=== PATIENT | male | born 1970 | race Caucasian/White ===

== ENCOUNTER 2020-09-15 17:11 | Emergency (ER) | payer OTHER ==
[2020-09-15] MEDS ORDERED: CYCLOBENZAPRINE10 MG PO (19:16)
[2020-09-15] MEDS ORDERED: NORCO 5-325 TA1 EACH PO (19:16)
== END 2020-09-15 19:44 | disposition home or self-care (01) ==
LOC: FER 17:11
DX: S23.3XXA Sprain of ligaments of thoracic spine, initial encounter (principal); S33.5XXA Sprain of ligaments of lumbar spine, initial encounter; S40.812A Abrasion of left upper arm, initial encounter; V03.90XA Pedestrian on foot injured in collision with car, pick-up truck or van, unspecified whether traffic or nontraffic accident, initial encounter
CPT/HCPCS: 70450; 71045; 71100; 72125; 72128; 72131; 73030; 73130

== ENCOUNTER 2021-02-15 14:21 | Emergency (ER) | payer OTHER ==
[~2021-02-15 14:21] MED LIST: CYCLOBENZAPRINE10 MG PO; NORCO 5-325 TA1 EACH PO
[2021-02-15 15:09] LABS: BASOPHIL 0.4 % (0-2); EOSINOPHIL 4.6 % (0-5); HCT 51.6 % (42.0-52.0); HGB 17.7 g/dl (13.2-18.0); LYMPHOCYTE 25.3 % (15-48); MCH 29.5 pg (25.0-31.0); MCHC 34.3 g/dL (32.0-36.0); MCV 85.9 fL (78.0-100.0); MONOCYTE 11.3 % (0-12); MPV 9.9 fL (6.0-9.5); NEUTROPHIL 58.1 % (41-80); NRBC 0; PLT 425 K/uL (150-400); RBC 6.01 M/uL (4.70-6.00); RDW 12.9 % (11.5-14.0); WBC 15.3 K/uL (4.0-10.5)
[2021-02-15 15:17] LABS: BILIRUBIN 1+ mg/dL (NEGATIVE); BLOOD NEGATIVE Ery/uL (NEGATIVE); CLARITY CLEAR (CLEAR); COLOR YELLOW (YELLOW); GLUCOSE (U) NORMAL (NORMAL); LEUKOCYTES NEGATIVE Leu/uL (NEGATIVE); NITRITE NEGATIVE (NEGATIVE); PROTEIN NEGATIVE (NEGATIVE); SPECIFIC GRAVITY 1.025 (1.001-1.030); UROBILINOGEN 0.2 mg/dL (0.2-1.0); pH 5.5 (5.0-9.0)
[2021-02-15 15:44] LABS: ALBUMIN 3.8 g/dL (3.4-5.0); BILIRUBIN - TOTAL 0.9 mg/dL (0.2-1.0); BUN/CREAT RATIO (CALC) 16.1 RATIO; CREATININE 0.93 mg/dL (0.67-1.17); GLOBULIN (CALCULATION) 3.7 g/dL; POTASSIUM 3.8 mmol/L (3.5-5.1); TOTAL PROTEIN 7.5 g/dL (6.4-8.2)
[2021-02-15 16:36] LABS: LACTIC ACID 1.1 mmol/L (0.4-1.9)
[2021-02-15] MEDS ORDERED: PHENERGAN25 M1 PO (17:33)
== END 2021-02-15 18:00 | disposition home or self-care (01) ==
LOC: FER 14:21
PROVIDERS: Nurse Practitioner Family
DX: K29.70 Gastritis, unspecified, without bleeding (principal); I10 Essential (primary) hypertension
CPT/HCPCS: 36415; 80053; 81003; 83605; 85025; J7030; Q9967